=== PATIENT | female | born 1980 | race Caucasian/White ===

== ENCOUNTER 2024-10-24 21:18 | Emergency (ER) | payer BC ==
[2024-10-24] MEDS ORDERED: Ketorolac Tromethamine 30 MG (1 mL) VIAL ONE (22:07)
[2024-10-24] MEDS ORDERED: predniSONE 20 MG TAB ONE (22:07)
== END 2024-10-24 23:07 | disposition home or self-care (01) ==
LOC: MADERS 21:18
DX: M54.41 Lumbago with sciatica, right side (principal); J06.9 Acute upper respiratory infection, unspecified
CPT/HCPCS: 71045; 96372; J1885; J7512